=== PATIENT | male | born 1960 | race Caucasian/White ===

== ENCOUNTER 2019-03-20 12:49 | Emergency (ER) | payer BC ==
[2019-03-20 13:09] VITALS: BP 167/108
[2019-03-20] MEDS ORDERED: Lidocaine 1%* 5 ML VIAL INJ ONE (13:17)
--- NOTE | 2019-03-20 13:17 | UC ---
Minor Trauma HPI - HPI Summary HPI Summary: Helping a friend with a roof and a drill accidentally went through his distal left ring finger. Last tetanus was 2 1/2 years ago - History of Current Complaint Chief Complaint: UCLaceration Stated Complaint: LEFT RING FINGER WOUND Time Seen by Provider: 03/20/19 13:12 Hx Obtained From: Patient Onset/Duration: Sudden Onset Onset Of Pain: Immediate Severity Initially: Mild Severity Currently: Mild Pain Intensity: 4 Mechanism Of Injury: Penetrating Trauma Aggravating Factor(s): Nothing Alleviating Factor(s): Nothing - Allergies/Home Medications Allergies/Adverse Reactions: Allergies Allergy/AdvReac Type Severity Reaction Status Date / Time amoxicillin AdvReac Nausea Verified 03/20/19 13:03 Home Medications: Home Medications Ibuprofen TAB* [Advil TAB*] 800 mg PO Q6H PRN 03/20/19 [History Confirmed ] Omeprazole CAP (NF) [Prilosec CAP* 20 MG] 20 mg PO BID 03/20/19 [History Confirmed 03/20/19] PMH/Surg Hx/FS Hx/Imm Hx Previously Healthy: Yes GI/ History: Gastroesophageal Reflux - Surgical History Surgical History: Yes Surgery Procedure, Year, and Place: hernia. arthroscopy knee. bicep repair - Family History Known Family History: Positive: Non-Contributory - Social History Alcohol Use: Occasionally Substance Use Type: None Smoking Status (MU): Never Smoked Tobacco - Immunization History Most Recent Tetanus Shot: 2-3 years ago Review of Systems All Other Systems Reviewed And Are Negative: Yes Skin: Positive: Other - Laceration distal left ring finger. Is Patient Immunocompromised?: No Physical Exam Triage Information Reviewed: Yes Appearance: Well-Appearing, No Pain Distress, Well-Nourished Vital Signs: Initial Vital Signs Temp 98.1 F 03/20/19 13:05 Pulse 82 03/20/19 13:05 Resp 16 03/20/19 13:05 BP 167/108 03/20/19 13:05 Pulse Ox 96 03/20/19 13:05 Vital Signs Reviewed: Yes Musculoskeletal: Positive: Strength Intact, ROM Intact Neurological: Positive: Alert, Muscle Tone Normal Psychological Exam: Normal Skin: Positive: Other - Laceration distal left index finger. Minor Trauma Course/Dx - Course Course Of Treatment: Finger X-ray:FINDINGS: There is evidence of soft tissue swelling overlying the distal tip of the left ring finger. No cutaneous foreign body is visualized. The bones are normal alignment. Joint spaces appear maintained. No fracture is seen. IMPRESSION: APPEARANCES CONSISTENT WITH SOFT TISSUE SWELLING INVOLVING THE DISTAL PHALANX OF THE LEFT RING FINGER WITHOUT IDENTIFICATION OF SUBCUTANEOUS FOREIGN BODY OR ACUTE BONY INJURY. Following prep with Betadine and a 1% digital nerve block (after time out was done), good anesthesia was obtained. The laceration was then irrigated with copios amounts of normal saline. It was then probed and no foreign bodies were noted. It was then sutured using 5-0 Prolene. Sutures placed #2. Pt tolerated procedure well. The length of the laceration was approx 1.0 cm. a dry sterile bulky dressing was then applied. - Differential Dx/Diagnosis Provider Diagnosis: Laceration of finger Discharge - Sign-Out/Discharge Documenting (check all that apply): Patient Departure All imaging exams completed and their final reports reviewed: Yes - Discharge Plan Condition: Fair Disposition: HOME Prescriptions: Cephalexin CAP* [Keflex 500 CAP*] 500 mg PO TID 10 Days #30 cap Patient Education Materials: Care For Your Stitches (DC) Referrals: No Primary Care Phys,NOPCP [Primary Care Provider] - Additional Instructions: Follow up with your primary care doctor in 7-10 days for suture removal. Start the antibiotic if you develop signs of infection such as hot, red, tender, pus drainage, red streaks. Change the dressing daily. - Billing Disposition and Condition Condition: FAIR Disposition: Home
== END 2019-03-20 14:20 | disposition home or self-care (01) ==
LOC: UCCORT 12:49
DX: S61.215A Laceration without foreign body of left ring finger without damage to nail, initial encounter (principal); W29.8XXA Contact with other powered hand tools and household machinery, initial encounter; Y93.89 Activity, other specified; Y92.9 Unspecified place or not applicable; K21.9 Gastro-esophageal reflux disease without esophagitis
CPT/HCPCS: 12001; 73140; 99202; G0463